=== PATIENT | male | born 1940 | race African-American/Black ===

== ENCOUNTER 2018-03-06 08:56 | Emergency (ER) | payer MEDICARE, MEDICAID ==
[2018-03-06] VITALS (7 sets, daily range): BP systolic 146–186; BP diastolic 84–109
[~2018-03-06] VITALS: Ht 152.4 cm; Wt 72.6 kg
[2018-03-06] MEDS ORDERED: NKM (09:06)
[2018-03-06] MEDS ORDERED: Sodium Chloride 500ML 500 ML IV ONE (09:31)
[2018-03-06] MEDS ORDERED: Morphine Sulfate 4mg/ml Inj (IV/IM USE ONLY) IVP ONE (09:45)
[2018-03-06 10:03] LABS: BASOPHILS % (AUTO) 1.3 % (0.0-2.0); EOSINOPHILS % (AUTO) 0.8 % (0.0-3.0); HEMATOCRIT 35.4 % (42.0-52.0); HEMOGLOBIN 11.3 G/DL (14.2-18.0); LYMPHOCYTES % (AUTO) 16.8 % (20.0-45.0); MEAN CORPUSCULAR VOLUME 92 FL (80-99); MONOCYTES % (AUTO) 7.6 % (1.0-10.0); NEUTROPHILS % (AUTO) 73.6 % (45.0-75.0); PLATELET COUNT 355 K/UL (150-450); RED BLOOD COUNT 3.87 M/UL (4.70-6.10); RED CELL DISTRIBUTION WIDTH 16.3 % (11.6-14.8)
[2018-03-06 10:15] LABS: ANION GAP 10 mmol/L (5-15); BLOOD UREA NITROGEN 16 mg/dL (7-18); CARBON DIOXIDE 31 MMOL/L (21-32); CHLORIDE 96 MMOL/L (98-107); CREATININE 4.4 MG/DL (0.55-1.30); POTASSIUM 3.2 MMOL/L (3.5-5.1); SODIUM 137 MMOL/L (136-145)
[2018-03-06 10:21] LABS: ALANINE AMINOTRANSFERASE 20 U/L (12-78); ALBUMIN 2.8 G/DL (3.4-5.0); ALBUMIN/GLOBULIN RATIO 0.6 (1.0-2.7); ALKALINE PHOSPHATASE 97 U/L (46-116); ASPARTATE AMINO TRANSFERASE 32 U/L (15-37); BILIRUBIN,TOTAL 0.5 MG/DL (0.2-1.0)
--- NOTE | 2018-03-06 12:27 | Diagnostic Imaging Report ---
Indication: Abdominal pain left flank pain status post fall from wheelchair yesterday Technique: Spiral acquisitions obtained through the abdomen and pelvis. Patient ingested oral contrast. No IV contrast utilized, per referring physician request.. Multiplanar reconstructions were generated. Total dose length product 905 mGycm. CTDIvol(s) 16.38 mGy. Dose reduction achieved using automated exposure control Comparison: 10/11/2009 Findings: Subtle nondisplaced fractures of the anterolateral left fifth, the lateral left eighth ribs are demonstrated. Questionable fractures of the ninth, sixth, and seventh ribs are also evident. There is an age indeterminate fracture of the tip of the left 12th rib. There are wedge compression fracture deformities of the T12 and L1 vertebral bodies. There is also evidence of inferior endplate compression of the L2 vertebral body. The bones are osteoporotic. There is evidence of prior L5 laminectomy, L4 laminotomy. No fusion hardware is present. The remainder the bones are intact. There are degenerative changes of both hips. There are median sternotomy sutures. There is infiltration of the fat posterior to the sacrum which appears similar to but perhaps slightly more extensive than on the previous study. Included lung bases demonstrate posterior dependent atelectatic changes. There is a calcification within the left costophrenic sulcus No evidence of contusion or pneumothorax. The heart is enlarged. The tip of a dialysis catheter is seen in the right atrium. The lack of IV contrast limits assessment of the solid organs. The liver, gallbladder, bile ducts are grossly unremarkable. The pancreas demonstrates numerous calcifications throughout the pancreas which are not evident previously. The pancreas is also atrophic, more so than previously. The spleen and adrenals are unremarkable. The kidneys are atrophic bilaterally. The right kidney demonstrates multiple round lesions of indeterminate attenuation, most under a centimeter but most not evident previously. There are some right renal cysts which are not evident previously. However, there is a solid lesion in the lower pole which measures 2 cm in diameter. This is not evident previously. There is a round soft tissue attenuation lesion coming off of the upper pole of the left kidney which now demonstrates rim calcifications, measures 3 cm in diameter, but is unchanged in size from the previous study. Multiple cysts are seen elsewhere in the left kidney, some present previously, some new since the prior exam. There is a 1 cm lesion with indeterminate attenuation coming off of the lower pole of left kidney, not evident previously. There is a right lower quadrant transplant kidney also present, appearing smaller than on the previous exam. No focal abnormality seen within this. The bladder is mildly distended. The seminal vesicles are unremarkable. The prostate is prominent. The abdominal aorta is ectatic but not frankly dilated, as are the bilateral common iliac arteries The rectum is mildly distended with stool. There is some infiltration of the presacral fat. No definite rectal wall thickening, however. There is colonic diverticulosis. No evidence of diverticulitis. The appendix is normal. There is an umbilical hernia again demonstrated, into which now protrudes a small knuckle of small bowel. No associated bowel distention or evidence of strangulation. Small bowel loops are nondilated, although ingested contrast has traversed only a short segment of the small bowel. Distal esophagus, stomach, duodenum are unremarkable. Impression: Multiple left rib fractures, as described. No evidence of complications related to such. Multiple vertebral body compression fractures, age indeterminate. Consider MRI for better characterization if clinically relevant No evidence of solid organ trauma. Note, however, that assessment for such is limited in the absence of IV contrast administration Atrophic kidneys. Multiple renal cysts. Multiple bilateral renal masses of indeterminate attenuation, several of which are new since prior study of 2009. 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 However, neoplasm as etiology of any of these is also possible. Consider further evaluation with ultrasound Right lower quadrant transplant kidney, with progressive atrophy since prior exam. Presumably nonfunctional given the presence of a dialysis catheter Mildly distended rectum with stool, early fecal impaction possible. Edema of the presacral fat could indicate stercoral colitis, although this more likely a manifestation of generalized edema Umbilical hernia containing a small knuckle of small bowel. No evidence of obstruction or strangulation related to such Clonic diverticulosis. No evidence of diverticulitis Infiltration of the fat posterior to the sacrum. May be baseline for this patient and related to prior surgery, as this was evident previously. 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 Ahuja at the time of interpretation The CT scanner at [facility] is accredited by the [employer] and the scans are performed using protocols designed to limit radiation exposure to as low as reasonably achievable to attain images of sufficient resolution adequate for diagnostic evaluation.
--- NOTE | 2018-03-06 14:38 | Emergency Room Report ---
History of Present Illness General Chief Complaint: Abdominal Pain Source: Patient, EMS Present Illness HPI 77-year-old male presents ED for evaluation. Brought in by EMS. Complaining of left-sided abdominal pain. Per EMS they noted patient fell at home today. Patient denies falling. States pain started suddenly while he was sleeping. Pain is sharp, 9 out of 10, localized to left upper quadrant, patient states it also radiates to his chest. Denies shortness of breath. 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 States that he also gets dialysis. Denies shortness of breath. Denies fevers or chills. States that he normally goes to [facility] for his care. No other aggravating relieving factors. Denies any other associated symptoms Allergies: Coded Allergies: ATORVASTATIN (Verified Allergy, Mild, 07/02/09) TAMSULOSIN (Verified Allergy, Mild, 07/02/09) Patient History Past Medical History: DM, HTN, CHF, renal disease, dialysis Past Surgical History: other - cardiac and renal transplant Pertinent Family History: none Social History: Denies: smoking, alcohol use, drug use Immunizations: UTD Reviewed Nursing Documentation: PMH: Agreed; PSxH: Agreed Nursing Documentation-PMH Hx Cardiac Problems: Yes - CHF, Dialysis, heart transplant 1993 and 2005 Hx Hypertension: Yes Hx Diabetes: Yes Hx Dialysis: Yes - M/W/F Review of Systems All Other Systems: negative except mentioned in HPI Physical Exam Vital Signs Date Time Temp Pulse Resp B/P (MAP) Pulse Ox O2 Delivery O2 Flow Rate FiO2 03/06/18 08:56 98.6 105 17 186/103 100 Room Air Sp02 EP Interpretation: reviewed, normal General Appearance: no apparent distress, alert, GCS 15, non-toxic Head: normocephalic Eyes: bilateral eye normal inspection, bilateral eye PERRL ENT: normal ENT inspection Neck: normal inspection Respiratory: chest non-tender, lungs clear, normal breath sounds, speaking full sentences Cardiovascular #1: regular rate, rhythm, no edema Gastrointestinal: normal bowel sounds, soft, non-distended, no guarding, no rebound, tenderness - L sided abdomen Rectal: deferred Genitourinary: no CVA tenderness Musculoskeletal: back normal Neurologic: alert, oriented x3, responsive, motor strength/tone normal, sensory intact, speech normal Psychiatric: judgement/insight normal, memory normal, mood/affect normal, no suicidal/homicidal ideation Skin: normal inspection Lymphatic: normal inspection Procedures Critical Care Time Critical Care Time i. I feel this is a highly complex case requiring extensive working including EKG/Rhythm strip, Xray/CT/US, Blood/urine lab work, repeat exams while in ED, and administration of strong opiates/narcotics for pain control, admission to hospital or close patient follow up. Total time: 40 min bedside evaluation and treatment excludes procedures (EKG). Reason for critical care: transplant patient, chest pain, abd pain Possible complications: hypotension, hypertension, [place], shock, arrhythmias, metabolic acidosis, end organ damage, respiratory failure. Interventions: labs, EKG, CT. pain meds. BP meds. discussion with transplant team and cardiology team and hospitalists at [facility] Course: Patient presenting with abdominal pain 1 day. Questionable chest pain. History of cardiac transplant and renal transplant. Gets dialysis Tuesday. Labs show negative troponin. Elevated BUNs/ creatinine. Potassium okay. EKG shows right bundle branch block. No acute ischemic changes. CT shows left-sided rib fractures and polycystic changes to the kidneys. Discussed with transplant team at [facility] and cardiology team at [facility] for continuity of care Consultations: nursing staff, EMS, family Performed by: Dr Ahuja Tolerated well condition = serious j. because of unstable vital signs this patient had a condition that could potentially threaten life or limb. I feel this is a critical patient who required my full attention while patient was considered critical. Total Critical Care Time excluding procedures was greater than 35 minutes Medical Decision Making Diagnostic Impression: Primary Impression: Rib fractures Qualified Codes: S22.42XA - Multiple fractures of ribs, left side, initial encounter for closed fracture Additional Impressions: ESRD on dialysis H/O heart transplant H/O kidney transplant ER Course Hospital Course 77 yo M presents to ED c/o abd pain, chest pain Differential diagnoses include: BPH, cystitis, pyelonephritis, kidney stone Clinical course Patient placed on stretcher. remotely operated vehicle. After initial history and physical I ordered labs, EKG, pain medication and CT scan Labs - no leukocytosis, Hb/Hct stable, BUN/Cr elevated, trop negative EKG - RBBB, no acute ischemic changes interpreted by me CT abdomen and pelvis - mulitple L sided rib fx, no PTX. polcystic changes. s/ p renal transplant Given hydralazine for elevated BP. Given complexity patient with renal transplant cardiac transplant and chest pain, I believe patient should be transferred to [facility] for continuity of care Discussed with cardiology team and transplant team and hospitalists at [facility] and accepted patient for transfer I feel this is a highly complex case requiring extensive working including EKG/ Rhythm strip, Xray/CT/US, Blood/urine lab work, repeat exams while in ED, and administration of strong opiates/narcotics for pain control, admission to hospital or close patient follow up. Diagnosis - rib fracture, ESRD on dialysis, H/o heart transplant, h/o kidney transplant transferred in serious condition Labs Test 03/06/18 09:50 03/06/18 12:03 White Blood Count 12.0 K/UL (4.8-10.8) Red Blood Count 3.87 M/UL (4.70-6.10) Hemoglobin 11.3 G/DL (14.2-18.0) Hematocrit 35.4 % (42.0-52.0) Mean Corpuscular Volume 92 FL (80-99) Mean Corpuscular Hemoglobin 29.3 PG (27.0-31.0) Mean Corpuscular Hemoglobin Concent 32.0 G/DL (32.0-36.0) Red Cell Distribution Width 16.3 % (11.6-14.8) Platelet Count 355 K/UL (150-450) Mean Platelet Volume 5.7 FL (6.5-10.1) Neutrophils (%) (Auto) 73.6 % (45.0-75.0) Lymphocytes (%) (Auto) 16.8 % (20.0-45.0) Monocytes (%) (Auto) 7.6 % (1.0-10.0) Eosinophils (%) (Auto) 0.8 % (0.0-3.0) Basophils (%) (Auto) 1.3 % (0.0-2.0) Prothrombin Time 29.6 SEC (9.30-11.50) Prothromb Time International Ratio 3.0 (0.9-1.1) Activated Partial Thromboplast Time 49 SEC (23-33) Sodium Level 137 MMOL/L (136-145) Potassium Level 3.2 MMOL/L (3.5-5.1) Chloride Level 96 MMOL/L (98-107) Carbon Dioxide Level 31 MMOL/L (21-32) Anion Gap 10 mmol/L (5-15) Blood Urea Nitrogen 16 mg/dL (7-18) Creatinine 4.4 MG/DL (0.55-1.30) Estimat Glomerular Filtration Rate mL/min (>60) Glucose Level 184 MG/DL (74-106) Calcium Level 9.0 MG/DL (8.5-10.1) Total Bilirubin 0.5 MG/DL (0.2-1.0) Aspartate Amino Transf (AST/SGOT) 32 U/L (15-37) Alanine Aminotransferase (ALT/SGPT) 20 U/L (12-78) Alkaline Phosphatase 97 U/L (46-116) Troponin I 0.004 ng/mL (0.000-0.056) Total Protein 7.8 G/DL (6.4-8.2) Albumin 2.8 G/DL (3.4-5.0) Globulin 5.0 g/dL Albumin/Globulin Ratio 0.6 (1.0-2.7) Lipase 28 U/L (73-393) EKG Diagnostic Results Rate: normal Rhythm: NSR ST Segments: other - RBBB ASA given to the pt in ED: No Rhythm Strip Diag. Results EP Interpretation: yes Rhythm: NSR, no PVC's, no ectopy CT/MRI/US Diagnostic Results CT/MRI/US Diagnostic Results : Imaging Test Ordered: CT A/P Impression Impression: Multiple left rib fractures, as described. No evidence of complications related to such. Multiple vertebral body compression fractures, age indeterminate. Consider MRI for better characterization if clinically relevant No evidence of solid organ trauma. Note, however, that assessment for such is limited in the absence of IV contrast administration Atrophic kidneys. Multiple renal cysts. Multiple bilateral renal masses of indeterminate attenuation, several of which are new since prior study of 2009. 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 However, neoplasm as etiology of any of these is also possible. Consider further evaluation with ultrasound Right lower quadrant transplant kidney, with progressive atrophy since prior exam. Presumably nonfunctional given the presence of a dialysis catheter Mildly distended rectum with stool, early fecal impaction possible. Edema of the presacral fat could indicate stercoral colitis, although this more likely a manifestation of generalized edema Umbilical hernia containing a small knuckle of small bowel. No evidence of obstruction or strangulation related to such Last Vital Signs Date Time Temp Pulse Resp B/P (MAP) Pulse Ox O2 Delivery O2 Flow Rate FiO2 03/06/18 14:17 98.6 101 18 159/88 100 Room Air Status: improved Disposition: XFER [facility] Condition: Serious Referrals: NON PHYSICIAN (PCP) Eric Ahuja MD Mar 06, 2018 14:38
--- NOTE | 2018-03-07 12:43 | Cardiology Report ---
APPROVED REPORT EKG Measurement Heart [id number] ND [id number] Normal sinus rhythm Left axis deviation Right bundle branch block Abnormal ECG
== END 2018-03-06 19:10 | disposition short-term general hospital (02) ==
LOC: EDBD 08:56 → EDSEX 08:56 → EMR 09:45 → EDBEDREQSVC 10:38 → EMR 19:10
DX: S22.42XA Multiple fractures of ribs, left side, initial encounter for closed fracture (principal); W19.XXXA Unspecified fall, initial encounter; Y92.009 Unspecified place in unspecified non-institutional (private) residence as the place of occurrence of the external cause; I13.2 Hypertensive heart and chronic kidney disease with heart failure and with stage 5 chronic kidney disease, or end stage renal disease; I50.9 Heart failure, unspecified; E11.22 Type 2 diabetes mellitus with diabetic chronic kidney disease; N18.6 End stage renal disease; Z99.2 Dependence on renal dialysis; Z94.1 Heart transplant status; Z94.0 Kidney transplant status
CPT/HCPCS: 36415; 74176; 80053; 80197; 82962; 83690; 84484; 85025; 85610; 85730; 93005; 96374; 96375; 99291; J0360; J2270; J7040